=== PATIENT | male | born 1995 | race American Indian/Alaskan Native ===

== ENCOUNTER 2019-06-02 14:19 | Emergency (ER) | payer BC ==
--- NOTE | 2019-06-02 14:37 | Emergency Department Report ---
Blank Doc - Documentation Documentation: 24-year-old male that presents with acute headache, Denies any hx of headache. This initial assessment/diagnostic orders/clinical plan/treatment(s) is/are subject to change based on patient's health status, clinical progression and re- assessment by fellow clinical providers in the ED. Further treatment and workup at subsequent clinical providers discretion. Patient/guardians urged not to elope from the ED as their condition may be serious if not clinically assessed and managed. Initial orders include: 1- Patient sent to [facility] for further evaluation and treatment 2- CT head
[2019-06-02] MEDS ORDERED: dexAMETHasone 20 MG/5 ML VIAL IM ONE (17:14)
--- NOTE | 2019-06-02 18:24 | Emergency Department Report ---
ED Headache HPI - General Chief Complaint: Headache Stated Complaint: BAD HEADACHE X4 DAY/ Time Seen by Provider: 06/02/19 14:36 - History of Present Illness Initial Comments: 24-year-old male complaining of sharp pain in his head associated with blurry vision and photosensitivity x4 days. He denies any head injury. He denies fever he denies nausea and vomiting states he has never had a headache like this before. Patient reports history of seasonal allergies and acid reflux. Quality: moderate, pressure, throbbing Head Injury Location: occipital Recent Head Trauma: no recent headache/trauma Associated Symptoms: denies: confusion, flushing, loss of consciousness, numbness in legs/feet, seizures, weakness Allergies/Adverse Reactions: Allergies doxycycline Allergy (Verified 06/02/19 14:22) Shortness of Breath Home Medications: Ambulatory Orders Amoxicillin [Amoxicillin TAB] 875 mg PO BID #10 tablet 06/02/19 methylPREDNISolone [Medrol 4MG DOSEPAK (21 tabs)] 4 mg PO QDAY #1 pkg 06/02/19 ED Review of Systems ROS: Stated complaint: BAD HEADACHE X4 DAY/ Other details as noted in HPI Comment: All other systems reviewed and negative Constitutional: denies: chills, fever Eyes: vision change (blurry vision) Respiratory: no symptoms reported. denies: cough, SOB with exertion Cardiovascular: denies: chest pain, palpitations Gastrointestinal: denies: abdominal pain, nausea, vomiting Musculoskeletal: denies: back pain Neurological: denies: headache, weakness ED Past Medical Hx - Past Medical History Previous Medical History?: Yes Hx GERD: Yes - Surgical History Past Surgical History?: No - Social History Smoking Status: Former Smoker Substance Use Type: None - Medications Home Medications: Home Medications Medication Instructions Recorded Confirmed Last Taken Type Amoxicillin [Amoxicillin TAB] 875 mg PO BID #10 tablet 06/02/19 Unknown Rx methylPREDNISolone [Medrol 4MG 4 mg PO QDAY #1 pkg 06/02/19 Unknown Rx DOSEPAK (21 tabs)] ED Physical Exam - General Limitations: No Limitations General appearance: alert, in no apparent distress - Head Head exam: Present: atraumatic - Eye Eye exam: Present: normal appearance, EOMI. Absent: periorbital tenderness Pupils: Present: normal accommodation - ENT ENT exam: Present: normal exam, mucous membranes moist, TM's normal bilaterally, other (frontal sinus tenderness) - Neck Neck exam: Present: normal inspection. Absent: lymphadenopathy - Respiratory Respiratory exam: Present: normal lung sounds bilaterally - Cardiovascular Cardiovascular Exam: Present: regular rate, normal heart sounds - GI/Abdominal GI/Abdominal exam: Present: soft - Extremities Exam Extremities exam: Present: normal inspection - Back Exam Back exam: Present: normal inspection - Neurological Exam Neurological exam: Present: alert, oriented X3, CN II-XII intact, normal gait, other (negative Rhomberg) - Psychiatric Psychiatric exam: Present: normal affect - Skin Skin exam: Present: warm, dry, intact, normal color ED Course Vital Signs 06/02/19 14:36 Temperature 97.5 F L Pulse Rate 57 L Respiratory 18 Rate Blood Pressure 144/71 O2 Sat by Pulse 100 Oximetry Critical Care Time: No Critical care attestation.: If time is entered above; I have spent that time in minutes in the direct care of this critically ill patient, excluding procedure time. ED Disposition Clinical Impression: Headache Qualifiers: Headache type: tension-type Headache chronicity pattern: acute headache Intractability: not intractable Qualified Code(s): G44.209 - Tension-type headache, unspecified, not intractable Sinusitis Qualifiers: Sinusitis location: frontal Chronicity: acute Recurrence: non-recurrent Qualified Code(s): J01.10 - Acute frontal sinusitis, unspecified Disposition: DC-01 TO HOME OR SELFCARE Is pt being admited?: No Does the pt Need Aspirin: No Condition: Stable Instructions: Sinusitis (ED), Tension Headache (ED) Additional Instructions: Rest, increase oral hydration drinking at least 6 to 8 glasses of water per day. Take medication as prescribed. Follow-up with your primary care doctor and 3 to 5 days Prescriptions: Amoxicillin [Amoxicillin TAB] 875 mg PO BID #10 tablet methylPREDNISolone [Medrol 4MG DOSEPAK (21 tabs)] 4 mg PO QDAY #1 pkg Referrals: MELCHOR NICHOLE MD [Primary Care Provider] - 3-5 Days JAMES EMANUEL MD [Staff Physician] - 3-5 Days
--- NOTE | 2019-06-02 18:39 | Cat Scan Report ---
CT head/brain wo con INDICATION / CLINICAL INFORMATION: 24 years Male; MAIN: headache [id number], pressure in front moves to back . TECHNIQUE: Routine CT head without contrast. All CT scans at this location are performed using CT dos e reduction for ALARA by means of automated exposure control. COMPARISON: None. FINDINGS: BRAIN / INTRACRANIAL CONTENTS: No acute hemorrhage, mass effect, midline shift, hydrocephalus, or acu te, large territorial infarct. No chronic infarct or atrophy appreciated. No significant white matter abnormality. CRANIOCERVICAL JUNCTION: No significant abnormality. ORBITS: No significant abnormality of visualized orbits. SINUSES / MASTOIDS: No significant abnormality the visualized paranasal sinuses or mastoid air cells. ADDITIONAL FINDINGS: Prominent soft tissue is seen in the roof the nasopharynx, presumably related to reactive adenoidal tissue. Please clinically correlate. IMPRESSION: 1. No focal mass, hemorrhage, hydrocephalus, or acute, large territorial infarct. Signer Name: Feliz Nunez MD, III Signed: 06/02/2019 6:35 PM Workstation Name: [id number]
[2019-06-02 18:57] VITALS: BP 136/70
== END 2019-06-02 18:56 | disposition home or self-care (01) ==
LOC: ED 14:19
DX: G44.209 Tension-type headache, unspecified, not intractable (principal); J01.10 Acute frontal sinusitis, unspecified; Z87.891 Personal history of nicotine dependence
CPT/HCPCS: 70450; 96372; 99283; J1100